=== PATIENT | male | born 1960 | race Caucasian/White ===

== ENCOUNTER 2021-10-06 16:08 | Outpatient (CLI) | payer OTHER | END 2021-10-06 16:09 | disposition home or self-care (01) | LOC: CSHLAB 16:08 | PROVIDERS: ATTEND Internal Medicine Gastroenterology | DX: Z20.822 Contact with and (suspected) exposure to COVID-19 (principal); Z12.11 Encounter for screening for malignant neoplasm of colon | CPT/HCPCS: U0003; U0005 ==

== ENCOUNTER 2021-10-09 07:30 | Day surgery (SDC) | payer OTHER ==
[2021-10-06 09:18] VITALS: BMI 26.9
[2021-10-09] MEDS ORDERED: Lidocaine 1% MPF 2 ML VIAL ONE (08:31)
[2021-10-09] MEDS ORDERED: PROPOFOL 60 ML ONE (09:28)
== END 2021-10-09 11:00 | disposition home or self-care (01) ==
LOC: CSHSDC 07:30
PROVIDERS: ATTEND Internal Medicine Gastroenterology
PROC: 0DJD8ZZ Inspection of Lower Intestinal Tract, Via Natural or Artificial Opening Endoscopic (ICD-10-PCS; principal; 2021-10-09)
DX: Z12.11 Encounter for screening for malignant neoplasm of colon (principal); K57.30 Diverticulosis of large intestine without perforation or abscess without bleeding; K64.9 Unspecified hemorrhoids; Z88.0 Allergy status to penicillin; Z88.5 Allergy status to narcotic agent
CPT/HCPCS: J2704